=== PATIENT | female | born 1980 | race Two or more races ===

== ENCOUNTER 2018-06-12 05:15 | Day surgery (SDC) | payer OTHER ==
[~2018-06-12 05:15] MED LIST: EFFEXOR XR37.5 MG PO; ORTHO-CYCLEN 21 EACH PO; PEPCID20 MG PO; TRANXENE PO
== END 2018-06-12 12:40 | disposition home or self-care (01) ==
LOC: CIR.AMB 05:15
DX: K80.10 Calculus of gallbladder with chronic cholecystitis without obstruction (principal)

== ENCOUNTER 2020-05-13 09:32 | Emergency (ER) | payer OTHER ==
[~2020-05-13] VITALS: Ht 157.5 cm; Wt 86.2 kg
== END 2020-05-13 14:52 | disposition home or self-care (01) ==
LOC: ER 09:32
DX: O21.8 Other vomiting complicating pregnancy (principal); O26.891 Other specified pregnancy related conditions, first trimester; R10.13 Epigastric pain; Z3A.08 8 weeks gestation of pregnancy

== ENCOUNTER 2020-11-12 07:00 | Inpatient (IN) | payer OTHER ==
[~2020-11-12] VITALS: Ht 157.5 cm; Wt 87.1 kg
[2020-11-12] MEDS ORDERED: BIOTIN1 M1 PO (08:38)
[2020-11-12] MEDS ORDERED: FERRO-TIME325 MG PO (08:38)
[2020-11-12] MEDS ORDERED: [UNRECOGNIZED DRUG - OTHER] (08:42)
[2020-11-19] MEDS ORDERED: SPRINTEC 28 DA1 EACH (15:23)
[2020-11-19] MEDS ORDERED: NAPROXEN SODIU550 MG (15:23)
[2020-11-20] MEDS ORDERED: LIDOCAINE1 EACH (08:30)
[2020-11-20] MEDS ORDERED: ALOE VERA25 MG (08:31)
[2020-11-20] MEDS ORDERED: Tylenol #3 PO (08:48)
[2020-11-20] MEDS ORDERED: NAPR500T14 PO (08:48)
[2020-11-20] MEDS ORDERED: PYRIDIUM100 M1 PO (08:49)
== END 2020-11-20 12:59 | disposition home or self-care (01) | DRG 743 ==
LOC: SURH 11-19 07:00 → OB/GYN 11-19 08:55 → O/R 11-19 08:55 → OB/GYN 11-19 13:31
PROVIDERS: ADMIT Obstetrics & Gynecology; ATTEND Obstetrics & Gynecology
PROC: 0UQF8ZZ Repair Cul-de-sac, Via Natural or Artificial Opening Endoscopic (ICD-10-PCS; 2020-11-19)
PROC: 0USG8ZZ Reposition Vagina, Via Natural or Artificial Opening Endoscopic (ICD-10-PCS; 2020-11-19)
PROC: 0TJB8ZZ Inspection of Bladder, Via Natural or Artificial Opening Endoscopic (ICD-10-PCS; 2020-11-19)
PROC: 0UT98ZZ Resection of Uterus, Via Natural or Artificial Opening Endoscopic (ICD-10-PCS; principal; 2020-11-19 07:00)
DX: N94.5 Secondary dysmenorrhea (principal); N72 Inflammatory disease of cervix uteri; D25.1 Intramural leiomyoma of uterus; D25.2 Subserosal leiomyoma of uterus; D50.0 Iron deficiency anemia secondary to blood loss (chronic); N81.11 Cystocele, midline